=== PATIENT | male | born 1990 | race Caucasian/White ===

== ENCOUNTER 2016-05-28 21:58 | Inpatient (IN) | payer MEDICAID ==
[~2016-05-28] VITALS: Ht 170.2 cm; Wt 106.5 kg
[~2016-05-28 21:58] MED LIST: OLAN10TA3 PO
[2016-05-28 23:24] VITALS: BP 135/91
[2016-05-28] MEDS ORDERED: HALOPERIDOL 5 MG TABLET PO PRN (23:30)
[2016-05-28] MEDS ORDERED: ZOLPIDEM TARTRATE 10 MG TABLET PO PRN (23:30)
[2016-05-28] MEDS ORDERED: LORazepam 2 MG TABLET PO PRN (23:30)
[2016-05-29] MEDS ORDERED: ACETAMINOPHEN 325 MG TABLET PO PRN (00:15)
[2016-05-29] MEDS ORDERED: LOPERAMIDE HCL 2 MG CAPSULE PO PRN (00:15)
[2016-05-29 00:36] VITALS: BP 125/75
[2016-05-29] MEDS ORDERED: PNEUMOCOCCAL VACCINE POLYVALENT 0.5 ML VIAL [PPSV23] IM ONE (01:30)
[2016-05-29 07:58] LABS: BASOPHILS % (AUTO) 0.5 % (0.0-2.0); HEMOGLOBIN 13.1 g/dL (13.5-17.5); LYMPHOCYTES # (AUTO) 2.9 K/uL (1.0-4.8); LYMPHOCYTES % (AUTO) 32.7 % (22.0-44.0); MEAN CORPUSCULAR HEMOGLOBIN 27.2 pg (26.0-34.0); MEAN CORPUSCULAR HGB CONC 32.6 G/dL (31.0-37.0); MEAN CORPUSCULAR VOLUME 83 fL (80-100); MONOCYTES % (AUTO) 11.2 % (2.0-9.0); NEUTROPHILS # (AUTO) 4.9 K/uL (1.8-7.7); NEUTROPHILS % (AUTO) 54.6 % (40.0-70.0); PLATELET COUNT (AUTO) 209 K/uL (150-450); RED CELL DISTRIBUTION WIDTH 14.3 % (11.5-14.5); WHITE BLOOD COUNT (AUTO) 8.9 K/uL (4.5-11.0)
[2016-05-29 08:16] LABS: ALANINE AMINOTRANSFERASE 106 U/L (12-78); ALBUMIN 3.3 g/dL (3.4-5.0); ANION GAP 9 mmol/L (8-16); ASPARTATE AMINOTRANSFERASE 36 U/L (15-37); BILIRUBIN,TOTAL 0.5 mg/dL (0.1-1.0); CALCIUM, TOTAL 8.5 mg/dL (8.8-10.5); CARBON DIOXIDE 27 mmol/L (22-29); CHLORIDE 103 mmol/L (98-107); CREATININE 0.88 mg/dL (0.60-1.30); GLOMERULAR FILTR. RATE CALC > 60 mL/min (>60); SODIUM SERUM 139 mmol/L (136-145); TOTAL PROTEIN, SERUM 6.5 g/dL (6.4-8.2); UREA NITROGEN, BLOOD 11 mg/dL (7-18)
[2016-05-29 08:31] VITALS: BP 107/65
[2016-05-29 16:04] VITALS: BP 138/87
[2016-05-29] MEDS ORDERED: OLANZapine 10 MG TABLET PO SCH (21:00)
[2016-05-30 06:30] VITALS: BP 114/82
[2016-05-30 08:55] VITALS: BP 114/73
[2016-05-30] MEDS ORDERED: FLUoxetine HCL 20 MG CAPSULE PO SCH (09:00)
[2016-05-30 16:00] VITALS: BP 118/68
[2016-05-30] MEDS ORDERED: OLANZapine 7.5 MG TABLET PO SCH (21:00)
[2016-05-31 04:14] VITALS: BP 115/70
[2016-05-31 08:41] VITALS: BP 118/61
[2016-05-31] MEDS: FLUoxetine HCL 20 MG CAPSULE PO SCH (08:56)
[2016-05-31 16:00] VITALS: BP 109/67
[2016-05-31] MEDS: OLANZapine 10 MG TABLET PO SCH (20:05)
[2016-06-01 06:16] VITALS: BP 108/62
[2016-06-01 08:04] VITALS: BP 138/80
[2016-06-01] MEDS: FLUoxetine HCL 20 MG CAPSULE PO SCH (08:41)
[2016-06-01 16:06] VITALS: BP 131/79
[2016-06-01] MEDS: OLANZapine 10 MG TABLET PO SCH (20:27)
[2016-06-02 01:05] VITALS: BP 113/68
[2016-06-02 08:21] VITALS: BP 119/83
[2016-06-02] MEDS ORDERED: FLUoxetine HCL 20 MG CAPSULE PO SCH (09:00)
[2016-06-02] MEDS ORDERED: FLUO-191 PO (12:30)
== END 2016-06-02 13:15 | disposition home or self-care (01) | DRG 750 ==
LOC: B2S 23:35 → EDSTATUS 23:50
PROVIDERS: ADMIT Psychiatry & Neurology Psychiatry; ATTEND Psychiatry & Neurology Psychiatry
DX: F25.0 Schizoaffective disorder, bipolar type (principal); J44.9 Chronic obstructive pulmonary disease, unspecified; R45.851 Suicidal ideations; L02.413 Cutaneous abscess of right upper limb; F14.90 Cocaine use, unspecified, uncomplicated; F15.90 Other stimulant use, unspecified, uncomplicated; Z62.819 Personal history of unspecified abuse in childhood; F12.90 Cannabis use, unspecified, uncomplicated; Z63.8 Other specified problems related to primary support group; Z59.0 Homelessness; Z91.19 Patient's noncompliance with other medical treatment and regimen; Z98.890 Other specified postprocedural states; Z71.51 Drug abuse counseling and surveillance of drug abuser

== ENCOUNTER 2018-04-19 07:32 | Inpatient (IN) | payer MEDICAID, OTHER ==
[~2018-04-19] VITALS: Ht 167.6 cm; Wt 113.9 kg
[~2018-04-19 07:32] MED LIST changes: +FLUO-191 PO
[2018-04-19 08:11] LABS: AMPHET/METH SCREEN,URINE NEGATIVE (NEGATIVE); BARBITURATE SCREEN, URINE NEGATIVE (NEGATIVE); BENZODIAZEPINES SCREEN,URINE NEGATIVE (NEGATIVE); CANNABINOID SCREEN,URINE NEGATIVE (NEGATIVE); COCAINE SCREEN,URINE NEGATIVE (NEGATIVE); METHADONE SCREEN, URINE NEGATIVE (NEGATIVE); OPIATE SCREEN,URINE NEGATIVE (NEGATIVE); PHENCYCLIDINE SCREEN,URINE NEGATIVE (NEGATIVE)
[2018-04-19 08:15] LABS: BASOPHILS % (AUTO) 0.7 % (0.0-2.0); EOSINOPHILS % (AUTO) 0.3 % (1.0-6.0); HEMATOCRIT 41.4 % (41-53); HEMOGLOBIN 13.7 g/dL (13.5-17.5); LYMPHOCYTES # (AUTO) 1.4 K/uL (1.0-4.8); LYMPHOCYTES % (AUTO) 17.9 % (22.0-44.0); MEAN CORPUSCULAR HEMOGLOBIN 26.3 pg (26.0-34.0); MEAN CORPUSCULAR HGB CONC 33.1 G/dL (31.0-37.0); MEAN CORPUSCULAR VOLUME 79 fL (80-100); MONOCYTES # (AUTO) 0.8 K/uL (0.1-1.0); NEUTROPHILS # (AUTO) 5.6 K/uL (1.8-7.7); NEUTROPHILS % (AUTO) 71.1 % (40.0-70.0); PLATELET COUNT (AUTO) 282 K/uL (150-450); RED BLOOD CELL COUNT(AUTO) 5.21 MIL/uL (4.50-5.90); RED CELL DISTRIBUTION WIDTH 14.7 % (11.5-14.5)
[2018-04-19 08:23] LABS: ANION GAP 13 mmol/L (8-16); CALCIUM, TOTAL 9.5 mg/dL (8.8-10.5); CARBON DIOXIDE 23 mmol/L (22-29); CHLORIDE 101 mmol/L (98-107); CREATININE 0.73 mg/dL (0.60-1.30); GLOMERULAR FILTR. RATE CALC > 60 mL/min (>60); GLUCOSE,RANDOM 109 mg/dL (70-110); POTASSIUM 3.9 mmol/L (3.5-5.1); SODIUM SERUM 137 mmol/L (136-145); UREA NITROGEN, BLOOD 10 mg/dL (7-18)
[2018-04-19 08:29] LABS: ALANINE AMINOTRANSFERASE 72 U/L (12-78); ALBUMIN 3.6 g/dL (3.4-5.0); ALKALINE PHOSPHATASE 129 U/L (46-116); ASPARTATE AMINOTRANSFERASE 29 U/L (15-37); BILIRUBIN,TOTAL 0.4 mg/dL (0.1-1.0); TOTAL PROTEIN, SERUM 8.1 g/dL (6.4-8.2)
[2018-04-19] MEDS ORDERED: ZOLPIDEM TARTRATE 10 MG TABLET PO PRN (09:30)
[2018-04-19] MEDS ORDERED: HALOPERIDOL 5 MG TABLET PO PRN (09:30)
[2018-04-19] MEDS ORDERED: LORazepam 2 MG TABLET PO PRN (09:30)
[2018-04-19] MEDS ORDERED: PNEUMOCOCCAL VACCINE POLYVALENT 0.5 ML VIAL [PPSV23] IM ONE (13:45)
[2018-04-19 13:53] VITALS: BP 122/90
[2018-04-19] MEDS ORDERED: DOCUSATE SODIUM 100 MG CAPSULE PO PRN (15:00)
[2018-04-19] MEDS ORDERED: IBUPROFEN 400 MG TABLET PO PRN (15:00)
[2018-04-19] MEDS ORDERED: PETROLATUM,WHITE 71 GM JELLY TP PRN (15:00)
[2018-04-19] MEDS ORDERED: ALBUTEROL SULFATE HFA 90 MCG/PUFF 8 GM INHALER IH PRN (15:00)
[2018-04-19] MEDS ORDERED: ONDANSETRON HCL 4 MG TABLET PO PRN (15:00)
[2018-04-19] MEDS ORDERED: NICOTINE 14 MG/24 HOUR PATCH TD PRN (15:00)
[2018-04-19] MEDS ORDERED: LOPERAMIDE HCL 2 MG CAPSULE PO PRN (15:00)
[2018-04-19] MEDS ORDERED: MAG HYDROX/AL HYDROX/SIMETH ES 30 ML SUSPENSION UDCUP PO PRN (15:00)
[2018-04-19] MEDS ORDERED: ACETAMINOPHEN 325 MG TABLET PO PRN (15:00)
[2018-04-19] MEDS ORDERED: CloNIDine HCL 0.1 MG TABLET PO PRN (15:00)
[2018-04-19] MEDS ORDERED: MAGNESIUM HYDROXIDE SUSPENSION 30 ML UDCUP PO PRN (15:00)
[2018-04-19] MEDS ORDERED: GuaiFENesin/D-METHORPHAN [SUGAR-FREE] 200-20MG/10 ML SYRUP UDCUP PO PRN (15:00)
[2018-04-19 16:13] VITALS: BP 121/75
[2018-04-19] MEDS: OLANZapine 10 MG TABLET PO SCH (21:00)
[2018-04-20 00:42] VITALS: BP 118/70
[2018-04-20 08:28] VITALS: BP 153/72
[2018-04-20 08:47] LABS: BASOPHILS % (AUTO) 0.4 % (0.0-2.0); EOSINOPHILS % (AUTO) 1.1 % (1.0-6.0); HEMATOCRIT 41.5 % (41-53); HEMOGLOBIN 13.5 g/dL (13.5-17.5); LYMPHOCYTES # (AUTO) 2.4 K/uL (1.0-4.8); LYMPHOCYTES % (AUTO) 30.4 % (22.0-44.0); MEAN CORPUSCULAR HEMOGLOBIN 26.3 pg (26.0-34.0); MEAN CORPUSCULAR HGB CONC 32.5 G/dL (31.0-37.0); MEAN CORPUSCULAR VOLUME 81 fL (80-100); MONOCYTES # (AUTO) 0.9 K/uL (0.1-1.0); MONOCYTES % (AUTO) 11.1 % (2.0-9.0); NEUTROPHILS # (AUTO) 4.6 K/uL (1.8-7.7); PLATELET COUNT (AUTO) 278 K/uL (150-450); RED BLOOD CELL COUNT(AUTO) 5.14 MIL/uL (4.50-5.90); RED CELL DISTRIBUTION WIDTH 14.7 % (11.5-14.5)
[2018-04-20] MEDS: FLUoxetine HCL 20 MG CAPSULE PO SCH ×2 (09:00→10:05)
[2018-04-20 09:42] LABS: ALANINE AMINOTRANSFERASE 71 U/L (12-78); ALBUMIN 3.3 g/dL (3.4-5.0); ALKALINE PHOSPHATASE 120 U/L (46-116); ANION GAP 7 mmol/L (8-16); ASPARTATE AMINOTRANSFERASE 26 U/L (15-37); BILIRUBIN,TOTAL 0.4 mg/dL (0.1-1.0); CALCIUM, TOTAL 9.3 mg/dL (8.8-10.5); CARBON DIOXIDE 27 mmol/L (22-29); CHLORIDE 104 mmol/L (98-107); CHOL/HDL RATIO 3.1 (4.2-7.3); CHOLESTEROL 141 mg/dL (131-200); CREATININE 0.75 mg/dL (0.60-1.30); GLOMERULAR FILTR. RATE CALC > 60 mL/min (>60); GLUCOSE,RANDOM 97 mg/dL (70-110); HDL CHOLESTEROL 45 mg/dL (40-60); HEMOGLOBIN A1C 5.5 % (4.5-6.2); LDL CHOL (CALC.) 84 mg/dL (0-130); POTASSIUM 4.2 mmol/L (3.5-5.1); SODIUM SERUM 138 mmol/L (136-145); THYROID STIMULATING HORMONE 0.04 uIU/mL (0.36-3.74); TOTAL PROTEIN, SERUM 7.7 g/dL (6.4-8.2); TRIGLYCERIDES 59 mg/dL (15-150); UREA NITROGEN, BLOOD 15 mg/dL (7-18)
[2018-04-20 10:20] VITALS: BP 118/67
[2018-04-20 16:16] VITALS: BP 123/83
[2018-04-20] MEDS: OLANZapine 10 MG TABLET PO SCH (20:32)
[2018-04-21 05:26] VITALS: BP 135/82
[2018-04-21] MEDS: FLUoxetine HCL 20 MG CAPSULE PO SCH ×2 (08:09→09:00)
[2018-04-21 08:33] VITALS: BP 125/90
[2018-04-21 16:07] VITALS: BP 117/73
[2018-04-21] MEDS: OLANZapine 10 MG TABLET PO SCH (20:51)
[2018-04-22 01:26] VITALS: BP 140/80
[2018-04-22 08:25] VITALS: BP 120/68
[2018-04-22] MEDS: FLUoxetine HCL 20 MG CAPSULE PO SCH (08:55)
[2018-04-22 16:26] VITALS: BP 126/70
[2018-04-22] MEDS: OLANZapine 10 MG TABLET PO SCH (20:34)
[2018-04-23 07:24] VITALS: BP 120/81
[2018-04-23 08:43] VITALS: BP 121/63
[2018-04-23] MEDS: FLUoxetine HCL 20 MG CAPSULE PO SCH ×2 (09:00→11:15)
[2018-04-23 16:41] VITALS: BP 119/60
[2018-04-23] MEDS: OLANZapine 10 MG TABLET PO SCH (21:00)
[2018-04-24 00:05] VITALS: BP 117/78
[2018-04-24 08:51] VITALS: BP 100/60
[2018-04-24] MEDS: FLUoxetine HCL 20 MG CAPSULE PO SCH (09:00)
[2018-04-24 16:13] VITALS: BP 119/79
[2018-04-24] MEDS: OLANZapine 10 MG TABLET PO SCH (21:00)
[2018-04-25 01:55] VITALS: BP 106/71
[2018-04-25] MEDS: FLUoxetine HCL 20 MG CAPSULE PO SCH ×2 (09:00→09:22)
[2018-04-25 09:22] VITALS: BP 115/73
[2018-04-25 17:05] VITALS: BP 101/78
[2018-04-25] MEDS: OLANZapine 10 MG TABLET PO SCH (20:12)
[2018-04-26 00:20] VITALS: BP 122/68
[2018-04-26 08:43] VITALS: BP 114/76
[2018-04-26] MEDS: FLUoxetine HCL 20 MG CAPSULE PO SCH (09:00)
[2018-04-26 16:17] VITALS: BP 120/72
== END 2018-04-26 17:35 | disposition home or self-care (01) | DRG 750 ==
LOC: EMS 07:33 → B2S 10:34 → EMS 11:22 → B2S 04-23 19:30
PROVIDERS: ADMIT Psychiatry & Neurology Child & Adolescent Psychiatry; ATTEND Psychiatry & Neurology Child & Adolescent Psychiatry
DX: F25.0 Schizoaffective disorder, bipolar type (principal); E05.90 Thyrotoxicosis, unspecified without thyrotoxic crisis or storm; F41.9 Anxiety disorder, unspecified; G44.209 Tension-type headache, unspecified, not intractable; F99 Mental disorder, not otherwise specified; J44.9 Chronic obstructive pulmonary disease, unspecified; Z87.891 Personal history of nicotine dependence; Z28.21 Immunization not carried out because of patient refusal
CPT/HCPCS: 83036; 84439; 84443; 90686; 90732; G0480

== ENCOUNTER 2018-05-07 05:13 | Inpatient (IN) | payer MEDICAID, OTHER ==
[~2018-05-07] VITALS: Ht 160 cm; Wt 113.0 kg
[2018-05-07 05:53] LABS: ANION GAP 13 mmol/L (8-16); CALCIUM, TOTAL 9.3 mg/dL (8.8-10.5); CARBON DIOXIDE 23 mmol/L (22-29); CHLORIDE 100 mmol/L (98-107); GLOMERULAR FILTR. RATE CALC > 60 mL/min (>60); GLUCOSE,RANDOM 111 mg/dL (70-110); POTASSIUM 3.6 mmol/L (3.5-5.1); SODIUM SERUM 136 mmol/L (136-145); UREA NITROGEN, BLOOD 10 mg/dL (7-18)
[2018-05-07 05:54] LABS: BASOPHILS % (AUTO) 0.3 % (0.0-2.0); EOSINOPHILS % (AUTO) 0.6 % (1.0-6.0); HEMATOCRIT 44.1 % (41-53); HEMOGLOBIN 14.7 g/dL (13.5-17.5); LYMPHOCYTES # (AUTO) 3.1 K/uL (1.0-4.8); LYMPHOCYTES % (AUTO) 29.2 % (22.0-44.0); MEAN CORPUSCULAR HEMOGLOBIN 26.3 pg (26.0-34.0); MEAN CORPUSCULAR HGB CONC 33.3 G/dL (31.0-37.0); MEAN CORPUSCULAR VOLUME 79 fL (80-100); MONOCYTES # (AUTO) 0.7 K/uL (0.1-1.0); MONOCYTES % (AUTO) 6.4 % (2.0-9.0); NEUTROPHILS # (AUTO) 6.8 K/uL (1.8-7.7); NEUTROPHILS % (AUTO) 63.5 % (40.0-70.0); PLATELET COUNT (AUTO) 297 K/uL (150-450); RED BLOOD CELL COUNT(AUTO) 5.59 MIL/uL (4.50-5.90); RED CELL DISTRIBUTION WIDTH 14.9 % (11.5-14.5)
[2018-05-07 06:00] LABS: ALANINE AMINOTRANSFERASE 49 U/L (12-78); ALKALINE PHOSPHATASE 127 U/L (46-116); ASPARTATE AMINOTRANSFERASE 18 U/L (15-37); BILIRUBIN,TOTAL 0.4 mg/dL (0.1-1.0); TOTAL PROTEIN, SERUM 8.4 g/dL (6.4-8.2)
[2018-05-07 06:02] LABS: AMPHET/METH SCREEN,URINE NEGATIVE (NEGATIVE); BARBITURATE SCREEN, URINE NEGATIVE (NEGATIVE); BENZODIAZEPINES SCREEN,URINE NEGATIVE (NEGATIVE); CANNABINOID SCREEN,URINE NEGATIVE (NEGATIVE); COCAINE SCREEN,URINE NEGATIVE (NEGATIVE); METHADONE SCREEN, URINE NEGATIVE (NEGATIVE); OPIATE SCREEN,URINE NEGATIVE (NEGATIVE)
[2018-05-07 06:08] LABS: PHENCYCLIDINE SCREEN,URINE NEGATIVE (NEGATIVE)
[2018-05-07] MEDS ORDERED: LORazepam 2 MG TABLET PO PRN (10:30)
[2018-05-07] MEDS ORDERED: ZOLPIDEM TARTRATE 10 MG TABLET PO PRN (10:30)
[2018-05-07] MEDS ORDERED: HALOPERIDOL 5 MG TABLET PO PRN (10:30)
[2018-05-07 12:57] VITALS: BP 131/81
[2018-05-07 12:58] VITALS: BP 131/81
[2018-05-07] MEDS ORDERED: IBUPROFEN 400 MG TABLET PO PRN (13:00)
[2018-05-07] MEDS ORDERED: ALBUTEROL SULFATE HFA 90 MCG/PUFF 8 GM INHALER IH PRN (13:00)
[2018-05-07] MEDS ORDERED: CloNIDine HCL 0.1 MG TABLET PO PRN (13:00)
[2018-05-07] MEDS ORDERED: ACETAMINOPHEN 325 MG TABLET PO PRN (13:00)
[2018-05-07] MEDS ORDERED: LOPERAMIDE HCL 2 MG CAPSULE PO PRN (13:00)
[2018-05-07] MEDS ORDERED: MAG HYDROX/AL HYDROX/SIMETH ES 30 ML SUSPENSION UDCUP PO PRN (13:00)
[2018-05-07] MEDS ORDERED: GuaiFENesin/D-METHORPHAN [SUGAR-FREE] 200-20MG/10 ML SYRUP UDCUP PO PRN (13:00)
[2018-05-07] MEDS ORDERED: NICOTINE 14 MG/24 HOUR PATCH TD PRN (13:00)
[2018-05-07] MEDS ORDERED: PETROLATUM,WHITE 28 GM JELLY TP PRN (13:00)
[2018-05-07] MEDS ORDERED: DOCUSATE SODIUM 100 MG CAPSULE PO PRN (13:00)
[2018-05-07] MEDS ORDERED: ONDANSETRON HCL 4 MG TABLET PO PRN (13:00)
[2018-05-07] MEDS ORDERED: MAGNESIUM HYDROXIDE SUSPENSION 30 ML UDCUP PO PRN (13:00)
[2018-05-07 13:12] VITALS: BP 131/81
[2018-05-07] MEDS ORDERED: PNEUMOCOCCAL VACCINE POLYVALENT 0.5 ML VIAL [PPSV23] IM ONE (14:00)
[2018-05-07 16:04] VITALS: BP 118/67
[2018-05-08 05:02] VITALS: BP 122/78
[2018-05-08 08:24] VITALS: BP 117/62
[2018-05-08 08:43] LABS: BASOPHILS % (AUTO) 0.3 % (0.0-2.0); EOSINOPHILS % (AUTO) 0.9 % (1.0-6.0); HEMATOCRIT 42.5 % (41-53); LYMPHOCYTES # (AUTO) 3.3 K/uL (1.0-4.8); LYMPHOCYTES % (AUTO) 35.9 % (22.0-44.0); MEAN CORPUSCULAR HEMOGLOBIN 26.3 pg (26.0-34.0); MEAN CORPUSCULAR VOLUME 80 fL (80-100); MONOCYTES # (AUTO) 0.7 K/uL (0.1-1.0); MONOCYTES % (AUTO) 7.7 % (2.0-9.0); NEUTROPHILS % (AUTO) 55.2 % (40.0-70.0); PLATELET COUNT (AUTO) 259 K/uL (150-450); RED BLOOD CELL COUNT(AUTO) 5.32 MIL/uL (4.50-5.90); RED CELL DISTRIBUTION WIDTH 14.7 % (11.5-14.5)
[2018-05-08 09:01] LABS: HEMOGLOBIN A1C 5.9 % (4.5-6.2)
[2018-05-08 09:20] LABS: ALANINE AMINOTRANSFERASE 49 U/L (12-78); ALBUMIN 3.6 g/dL (3.4-5.0); ALKALINE PHOSPHATASE 117 U/L (46-116); ANION GAP 10 mmol/L (8-16); ASPARTATE AMINOTRANSFERASE 22 U/L (15-37); BILIRUBIN,TOTAL 0.6 mg/dL (0.1-1.0); CALCIUM, TOTAL 8.9 mg/dL (8.8-10.5); CARBON DIOXIDE 26 mmol/L (22-29); CHLORIDE 103 mmol/L (98-107); CHOL/HDL RATIO 4.8 (4.2-7.3); CHOLESTEROL 168 mg/dL (131-200); CREATININE 0.79 mg/dL (0.60-1.30); GLOMERULAR FILTR. RATE CALC > 60 mL/min (>60); GLUCOSE,RANDOM 83 mg/dL (70-110); HDL CHOLESTEROL 35 mg/dL (40-60); LDL CHOL (CALC.) 104 mg/dL (0-130); POTASSIUM 4.4 mmol/L (3.5-5.1); SODIUM SERUM 139 mmol/L (136-145); THYROID STIMULATING HORMONE 0.97 uIU/mL (0.36-3.74); TOTAL PROTEIN, SERUM 7.2 g/dL (6.4-8.2); TRIGLYCERIDES 146 mg/dL (15-150); UREA NITROGEN, BLOOD 14 mg/dL (7-18)
[2018-05-08 16:00] VITALS: BP 129/86
[2018-05-08] MEDS: OLANZapine 10 MG TABLET PO SCH (20:34)
[2018-05-09 01:20] VITALS: BP 124/79
[2018-05-09 08:09] VITALS: BP 118/67
[2018-05-09] MEDS: FLUoxetine HCL 20 MG CAPSULE PO SCH (08:58)
[2018-05-09] MEDS: OLANZapine 10 MG TABLET PO SCH ×2 (08:58→21:00)
[2018-05-09 16:22] VITALS: BP 127/65
[2018-05-10 06:16] VITALS: BP 122/82
[2018-05-10 08:12] VITALS: BP 117/72
[2018-05-10] MEDS: FLUoxetine HCL 20 MG CAPSULE PO SCH ×2 (08:21→09:00)
[2018-05-10] MEDS: OLANZapine 10 MG TABLET PO SCH ×3 (08:21→21:00)
[2018-05-10 16:15] VITALS: BP 106/63
[2018-05-11 05:57] VITALS: BP 112/72
[2018-05-11] MEDS: OLANZapine 10 MG TABLET PO SCH ×3 (08:35→21:00)
[2018-05-11] MEDS: FLUoxetine HCL 20 MG CAPSULE PO SCH ×2 (08:35→08:40)
[2018-05-11 09:26] VITALS: BP 122/77
[2018-05-11 16:00] VITALS: BP 123/68
[2018-05-12 03:29] VITALS: BP 121/69
[2018-05-12] MEDS: FLUoxetine HCL 20 MG CAPSULE PO SCH (08:16)
[2018-05-12] MEDS: OLANZapine 10 MG TABLET PO SCH ×2 (08:16→21:00)
[2018-05-12 09:38] VITALS: BP 117/71
[2018-05-12 16:41] VITALS: BP 117/81
[2018-05-13 01:46] VITALS: BP 143/81
[2018-05-13 08:27] VITALS: BP 110/60
[2018-05-13] MEDS: OLANZapine 10 MG TABLET PO SCH ×2 (09:00→20:36)
[2018-05-13] MEDS: FLUoxetine HCL 20 MG CAPSULE PO SCH (09:00)
[2018-05-13 16:00] VITALS: BP 119/85
[2018-05-14 00:58] VITALS: BP 114/76
[2018-05-14 07:56] VITALS: BP 127/75
[2018-05-14] MEDS: FLUoxetine HCL 20 MG CAPSULE PO SCH (08:26)
[2018-05-14] MEDS: OLANZapine 10 MG TABLET PO SCH ×2 (08:26→21:00)
[2018-05-14 08:59] VITALS: BP 127/75
[2018-05-14 16:00] VITALS: BP 126/65
[2018-05-15 01:13] VITALS: BP 122/78
[2018-05-15 08:20] VITALS: BP 138/70
[2018-05-15] MEDS: OLANZapine 10 MG TABLET PO SCH ×2 (09:00→21:00)
[2018-05-15] MEDS: FLUoxetine HCL 20 MG CAPSULE PO SCH (09:00)
[2018-05-15 17:08] VITALS: BP 147/87
[2018-05-16 00:11] VITALS: BP 140/74
[2018-05-16 08:07] VITALS: BP 114/67
[2018-05-16] MEDS: OLANZapine 10 MG TABLET PO SCH ×2 (08:26→20:51)
[2018-05-16] MEDS: FLUoxetine HCL 20 MG CAPSULE PO SCH (08:26)
[2018-05-16 16:32] VITALS: BP 115/83
[2018-05-17 01:37] VITALS: BP 117/84
[2018-05-17 08:20] VITALS: BP 110/61
[2018-05-17] MEDS: OLANZapine 10 MG TABLET PO SCH ×2 (09:00→20:34)
[2018-05-17] MEDS: FLUoxetine HCL 20 MG CAPSULE PO SCH (09:00)
[2018-05-17 16:00] VITALS: BP 123/70
[2018-05-18 00:08] VITALS: BP 142/93
[2018-05-18 08:19] VITALS: BP 118/73
[2018-05-18] MEDS: FLUoxetine HCL 20 MG CAPSULE PO SCH (09:00)
[2018-05-18] MEDS: OLANZapine 10 MG TABLET PO SCH (09:00)
[2018-05-18] MEDS ORDERED: OLAN10TA3 PO (15:50)
[2018-05-18 16:22] VITALS: BP 111/68
== END 2018-05-18 21:14 | disposition home or self-care (01) | DRG 750 ==
LOC: EMS 05:14 → B3A 11:12
PROVIDERS: ADMIT Psychiatry & Neurology Child & Adolescent Psychiatry; ATTEND Psychiatry & Neurology Child & Adolescent Psychiatry
DX: F25.0 Schizoaffective disorder, bipolar type (principal); Z91.19 Patient's noncompliance with other medical treatment and regimen; E03.9 Hypothyroidism, unspecified; F17.200 Nicotine dependence, unspecified, uncomplicated; J44.9 Chronic obstructive pulmonary disease, unspecified; K59.00 Constipation, unspecified; F41.9 Anxiety disorder, unspecified
CPT/HCPCS: 83036; 84443; 87081; G0480

== ENCOUNTER 2018-08-26 23:47 | Emergency (ER) | payer SELFPAY ==
[~2018-08-26] VITALS: Ht 167.6 cm; Wt 109.1 kg
[2018-08-27 01:00] LABS: BASOPHILS % (AUTO) 0.6 % (0.0-2.0); EOSINOPHILS % (AUTO) 0.5 % (1.0-6.0); HEMATOCRIT 42.7 % (41-53); HEMOGLOBIN 13.9 g/dL (13.5-17.5); LYMPHOCYTES # (AUTO) 2.3 K/uL (1.0-4.8); LYMPHOCYTES % (AUTO) 23.8 % (22.0-44.0); MEAN CORPUSCULAR HEMOGLOBIN 26.9 pg (26.0-34.0); MEAN CORPUSCULAR HGB CONC 32.5 G/dL (31.0-37.0); MEAN CORPUSCULAR VOLUME 83 fL (80-100); MONOCYTES # (AUTO) 0.6 K/uL (0.1-1.0); MONOCYTES % (AUTO) 6.4 % (2.0-9.0); NEUTROPHILS # (AUTO) 6.6 K/uL (1.8-7.7); NEUTROPHILS % (AUTO) 68.7 % (40.0-70.0); PLATELET COUNT (AUTO) 239 K/uL (150-450); RED BLOOD CELL COUNT(AUTO) 5.17 MIL/uL (4.50-5.90); RED CELL DISTRIBUTION WIDTH 15.7 % (11.5-14.5)
[2018-08-27 01:07] LABS: ANION GAP 8 mmol/L (8-16); CALCIUM, TOTAL 9.1 mg/dL (8.8-10.5); CARBON DIOXIDE 26 mmol/L (22-29); CHLORIDE 102 mmol/L (98-107); CREATININE 0.94 mg/dL (0.60-1.30); GLOMERULAR FILTR. RATE CALC > 60 mL/min (>60); GLUCOSE,RANDOM 119 mg/dL (70-110); POTASSIUM 3.7 mmol/L (3.5-5.1); SODIUM SERUM 136 mmol/L (136-145); UREA NITROGEN, BLOOD 7 mg/dL (7-18)
[2018-08-27 01:12] LABS: ALANINE AMINOTRANSFERASE 101 U/L (12-78); ALBUMIN 3.4 g/dL (3.4-5.0); ALKALINE PHOSPHATASE 142 U/L (46-116); ASPARTATE AMINOTRANSFERASE 46 U/L (15-37); BILIRUBIN,TOTAL 0.4 mg/dL (0.1-1.0); TOTAL PROTEIN, SERUM 7.7 g/dL (6.4-8.2)
[2018-08-27] MEDS ORDERED: HALOPERIDOL LACTATE 5 MG/ML VIAL IM ONE (01:15)
[2018-08-27] MEDS ORDERED: LORazepam 2 MG/ML VIAL IM ONE (01:15)
[2018-08-27 05:22] LABS: AMPHET/METH SCREEN,URINE NEGATIVE (NEGATIVE); BARBITURATE SCREEN, URINE NEGATIVE (NEGATIVE); BENZODIAZEPINES SCREEN,URINE NEGATIVE (NEGATIVE); CANNABINOID SCREEN,URINE NEGATIVE (NEGATIVE); COCAINE SCREEN,URINE NEGATIVE (NEGATIVE); METHADONE SCREEN, URINE NEGATIVE (NEGATIVE); OPIATE SCREEN,URINE NEGATIVE (NEGATIVE)
[2018-08-27 05:23] LABS: PHENCYCLIDINE SCREEN,URINE NEGATIVE (NEGATIVE)
[2018-08-27 06:03] VITALS: BP 132/86
== END 2018-08-27 06:05 | disposition home or self-care (01) ==
LOC: EMS 23:47
DX: F20.0 Paranoid schizophrenia (principal); Z87.891 Personal history of nicotine dependence
CPT/HCPCS: 36415; 80053; 80307; 85025; 99285; G0480

== ENCOUNTER 2022-02-21 11:17 | Inpatient (IN) | payer MEDICAID, OTHER ==
[~2022-02-21] VITALS: Ht 170.2 cm; Wt 124.3 kg
[~2022-02-21 11:17] MED LIST changes: +FLUO-177 PO; -FLUO-191 PO; -OLAN10TA3 PO; +OLAN10TA74 PO
[2022-02-21] MEDS ORDERED: ZOLPIDEM TARTRATE 10 MG TABLET PO PRN (13:00)
[2022-02-21] MEDS ORDERED: ACETAMINOPHEN 325 MG TABLET PO PRN (13:00)
[2022-02-21] MEDS ORDERED: PROMETHAZINE HCL 25 MG TABLET PO PRN (13:00)
[2022-02-21] MEDS ORDERED: TUBERCULIN, PURIFIED PROTEIN DERIVATIVE 5 TU/0.1 ML SYRINGE ID ONE (13:00)
[2022-02-21] MEDS ORDERED: HydrOXYzine PAMOATE 50 MG CAPSULE PO PRN (13:00)
[2022-02-21] MEDS ORDERED: GuaiFENesin/D-METHORPHAN [SUGAR-FREE] 200-20MG/10 ML SYRUP UDCUP PO PRN (13:00)
[2022-02-21] MEDS ORDERED: LORazepam 2 MG TABLET PO PRN (13:00)
[2022-02-21] MEDS ORDERED: MAG HYDROX/AL HYDROX/SIMETH ES 30 ML SUSPENSION UDCUP PO PRN (13:00)
[2022-02-21] MEDS ORDERED: LOPERAMIDE HCL 2 MG CAPSULE PO PRN (13:00)
[2022-02-21] MEDS ORDERED: MAGNESIUM HYDROXIDE SUSPENSION 30 ML UDCUP PO PRN (13:00)
[2022-02-21] MEDS ORDERED: OLANZapine 5 MG RAPDIS TABLET PO PRN (13:00)
[2022-02-21 13:26] LABS: BASOPHILS % (AUTO) 0.4 % (0.0-2.0); EOSINOPHILS % (AUTO) 0.3 % (1.0-6.0); HEMATOCRIT 40.9 % (41-53); HEMOGLOBIN 13.1 g/dL (13.5-17.5); LYMPHOCYTES # (AUTO) 1.6 K/uL (1.0-4.8); LYMPHOCYTES % (AUTO) 11.2 % (22.0-44.0); MEAN CORPUSCULAR HEMOGLOBIN 26.1 pg (26.0-34.0); MEAN CORPUSCULAR VOLUME 82 fL (80-100); MONOCYTES # (AUTO) 0.7 K/uL (0.1-1.0); MONOCYTES % (AUTO) 4.9 % (2.0-9.0); NEUTROPHILS # (AUTO) 12.1 K/uL (1.8-7.7); NEUTROPHILS % (AUTO) 83.2 % (40.0-70.0); PLATELET COUNT (AUTO) 300 K/uL (150-450); RED CELL DISTRIBUTION WIDTH 15.6 % (11.5-14.5)
[2022-02-21 13:36] LABS: ANION GAP 8 mmol/L (8-16); CALCIUM, TOTAL 9.2 mg/dL (8.8-10.5); CARBON DIOXIDE 25 mmol/L (22-29); CHLORIDE 100 mmol/L (98-107); CREATININE 0.85 mg/dL (0.60-1.30); GLUCOSE,RANDOM 103 mg/dL (70-110); POTASSIUM 4.1 mmol/L (3.5-5.1); SODIUM SERUM 133 mmol/L (136-145); UREA NITROGEN, BLOOD 8 mg/dL (7-18)
[2022-02-21 13:39] LABS: GLOMERULAR FILTR. RATE CALC > 60 mL/min (>60)
[2022-02-21 13:42] LABS: ALANINE AMINOTRANSFERASE 52 U/L (12-78); ALBUMIN 3.5 g/dL (3.4-5.0); ALKALINE PHOSPHATASE 129 U/L (46-116); ASPARTATE AMINOTRANSFERASE 19 U/L (15-37); BILIRUBIN,TOTAL 0.4 mg/dL (0.1-1.0); TOTAL PROTEIN, SERUM 8.6 g/dL (6.4-8.2)
[2022-02-21] MEDS ORDERED: VASOPRESSIN 40 UNITS in DEXTROSE 5%-WATER 98 ML IV PRN (14:15)
[2022-02-21 20:35] LABS: COVID AG,FIA SOURCE NASOPHARYNGEAL
[2022-02-21] MEDS: THIAMINE 100 MG TABLET PO SCH (20:41)
[2022-02-21] MEDS: DIVALPROEX SODIUM 500 MG ER TABLET PO SCH (20:41)
[2022-02-21 20:42] LABS: AMPHET/METH SCREEN,URINE NEGATIVE (NEGATIVE); BARBITURATE SCREEN, URINE NEGATIVE (NEGATIVE); BENZODIAZEPINES SCREEN,URINE NEGATIVE (NEGATIVE); CANNABINOID SCREEN,URINE NEGATIVE (NEGATIVE); COCAINE SCREEN,URINE NEGATIVE (NEGATIVE); METHADONE SCREEN, URINE NEGATIVE (NEGATIVE); OPIATE SCREEN,URINE NEGATIVE (NEGATIVE)
[2022-02-21 20:43] LABS: PHENCYCLIDINE SCREEN,URINE NEGATIVE (NEGATIVE)
[2022-02-21] MEDS: MELATONIN 5 MG TABLET PO SCH (21:00)
[2022-02-21] MEDS ORDERED: OLANZapine 5 MG RAPDIS TABLET PO SCH (21:00)
[2022-02-21 23:15] VITALS: BP 129/89
[2022-02-22 08:04] LABS: CHOL/HDL RATIO 5.3 (4.2-7.3); FREE T4 (FREE THYROXINE) 1.09 ng/dL (0.76-1.46); THYROID STIMULATING HORMONE 1.13 uIU/mL (0.36-3.74)
[2022-02-22 08:50] VITALS: BP 118/74
[2022-02-22] MEDS: MULTIVITAMINS WITH MINERALS, THERAPEUTIC TABLET PO SCH (09:00)
[2022-02-22] MEDS: FOLIC ACID 1 MG TABLET PO SCH (09:00)
[2022-02-22] MEDS ORDERED: PALIPERIDONE PALMITATE 234 MG/1.5 ML SYRINGE IM ONE (09:00)
[2022-02-22] MEDS: DIVALPROEX SODIUM 500 MG ER TABLET PO SCH ×2 (10:28→17:17)
[2022-02-22] MEDS: OMEGA-3/DHA/EPA/FISH OIL 1,000 MG CAPSULE PO SCH (10:29)
[2022-02-22] MEDS: THIAMINE 100 MG TABLET PO SCH ×2 (10:29→17:17)
[2022-02-22] MEDS: NALTREXONE HCL 50 MG TABLET PO SCH (10:29)
[2022-02-22] MEDS ORDERED: LURASIDONE HCL 20 MG TABLET PO PRN (19:45)
[2022-02-22 20:41] VITALS: BP 116/69
[2022-02-22] MEDS: MELATONIN 5 MG TABLET PO SCH (20:56)
[2022-02-22] MEDS ORDERED: INSULIN LISPRO 100 UNITS/ML SQ PRN (23:45)
[2022-02-22] MEDS ORDERED: GLUCAGON,HUMAN RECOMBINANT 1 MG VIAL IM PRN (23:45)
[2022-02-23 06:41] LABS: GLUCOMETER DEV NAME(LOC) BV3N.; GLUCOSE,POINT OF CARE 82 MG/DL (70-110)
[2022-02-23] MEDS: LURASIDONE HCL 40 MG TABLET PO SCH (07:04)
[2022-02-23] MEDS: FOLIC ACID 1 MG TABLET PO SCH (09:23)
[2022-02-23] MEDS: DIVALPROEX SODIUM 500 MG ER TABLET PO SCH ×2 (09:23→17:39)
[2022-02-23] MEDS: MULTIVITAMINS WITH MINERALS, THERAPEUTIC TABLET PO SCH (09:23)
[2022-02-23] MEDS: NALTREXONE HCL 50 MG TABLET PO SCH (09:23)
[2022-02-23] MEDS: THIAMINE 100 MG TABLET PO SCH ×2 (09:23→17:39)
[2022-02-23] MEDS: OMEGA-3/DHA/EPA/FISH OIL 1,000 MG CAPSULE PO SCH (09:23)
[2022-02-23 09:24] VITALS: BP 118/68
[2022-02-23 17:31] LABS: GLUCOMETER DEV NAME(LOC) BV3N.; GLUCOSE,POINT OF CARE 120 MG/DL (70-110)
[2022-02-23] MEDS: MELATONIN 5 MG TABLET PO SCH (20:08)
[2022-02-23 20:19] VITALS: BP 119/63
[2022-02-23] MEDS ORDERED: MELA5TAB40 PO (20:35)
[2022-02-23] MEDS ORDERED: NALT50TA PO (20:35)
[2022-02-23] MEDS ORDERED: LURA40TA2 PO (20:35)
[2022-02-23] MEDS ORDERED: DIVA-80 PO (20:35)
[2022-02-23] MEDS ORDERED: OMEG-135 PO (20:35)
[2022-02-24 06:21] LABS: GLUCOMETER DEV NAME(LOC) BV3N.; GLUCOSE,POINT OF CARE 93 MG/DL (70-110)
[2022-02-24] MEDS: LURASIDONE HCL 40 MG TABLET PO SCH (06:58)
[2022-02-24 08:19] LABS: BASOPHILS % (AUTO) 0.5 % (0.0-2.0); EOSINOPHILS % (AUTO) 0.8 % (1.0-6.0); HEMATOCRIT 39.4 % (41-53); HEMOGLOBIN 12.6 g/dL (13.5-17.5); LYMPHOCYTES # (AUTO) 3.4 K/uL (1.0-4.8); LYMPHOCYTES % (AUTO) 27.5 % (22.0-44.0); MEAN CORPUSCULAR HEMOGLOBIN 26.3 pg (26.0-34.0); MEAN CORPUSCULAR VOLUME 82 fL (80-100); MONOCYTES # (AUTO) 0.7 K/uL (0.1-1.0); MONOCYTES % (AUTO) 5.6 % (2.0-9.0); NEUTROPHILS # (AUTO) 8.2 K/uL (1.8-7.7); NEUTROPHILS % (AUTO) 65.6 % (40.0-70.0); PLATELET COUNT (AUTO) 286 K/uL (150-450); RED CELL DISTRIBUTION WIDTH 15.5 % (11.5-14.5)
[2022-02-24] MEDS: DIVALPROEX SODIUM 500 MG ER TABLET PO SCH (08:26)
[2022-02-24] MEDS: MULTIVITAMINS WITH MINERALS, THERAPEUTIC TABLET PO SCH (08:26)
[2022-02-24] MEDS: NALTREXONE HCL 50 MG TABLET PO SCH (08:26)
[2022-02-24] MEDS: OMEGA-3/DHA/EPA/FISH OIL 1,000 MG CAPSULE PO SCH (08:26)
[2022-02-24] MEDS: FOLIC ACID 1 MG TABLET PO SCH (08:26)
[2022-02-24] MEDS: THIAMINE 100 MG TABLET PO SCH (08:26)
[2022-02-26] MEDS ORDERED: PALIPERIDONE PALMITATE 156 MG/ML SYRINGE IM ONE (09:00)
== END 2022-02-24 13:00 | disposition home or self-care (01) | DRG 750 ==
LOC: EMS 11:17 → B3A 20:00
PROVIDERS: ADMIT Psychiatry & Neurology Psychiatry; ATTEND Psychiatry & Neurology Psychiatry
DX: F20.9 Schizophrenia, unspecified (principal); Z91.199 Patient's noncompliance with other medical treatment and regimen due to unspecified reason; D72.829 Elevated white blood cell count, unspecified; Z20.822 Contact with and (suspected) exposure to COVID-19; E78.5 Hyperlipidemia, unspecified; F17.200 Nicotine dependence, unspecified, uncomplicated; R73.03 Prediabetes; Z55.9 Problems related to education and literacy, unspecified; Z59.9 Problem related to housing and economic circumstances, unspecified; Z63.9 Problem related to primary support group, unspecified; Z65.3 Problems related to other legal circumstances
CPT/HCPCS: 80053; 80061; 80307; 82962; 83036; 84439; 84443; 85025; 86592; G0480; Q9967

== ENCOUNTER 2022-08-03 08:04 | Inpatient (IN) | payer MEDICAID, OTHER ==
[~2022-08-03] VITALS: Ht 165.1 cm; Wt 130.6 kg
[~2022-08-03 08:04] MED LIST changes: +DIVA500T53 PO; -FLUO-177 PO; +LURA40TA2 PO; +MELA5TAB40 PO; +NALT50TA PO; -OLAN10TA74 PO; +OMEG-135 PO
[2022-08-03 09:39] LABS: BASOPHILS % (AUTO) 0.6 % (0.0-2.0); EOSINOPHILS % (AUTO) 0.1 % (1.0-6.0); HEMATOCRIT 41.1 % (41-53); HEMOGLOBIN 13.5 g/dL (13.5-17.5); LYMPHOCYTES # (AUTO) 1.9 K/uL (1.0-4.8); LYMPHOCYTES % (AUTO) 12.9 % (22.0-44.0); MEAN CORPUSCULAR HEMOGLOBIN 25.8 pg (26.0-34.0); MEAN CORPUSCULAR HGB CONC 32.8 G/dL (31.0-37.0); MEAN CORPUSCULAR VOLUME 79 fL (80-100); MONOCYTES # (AUTO) 0.5 K/uL (0.1-1.0); MONOCYTES % (AUTO) 3.6 % (2.0-9.0); NEUTROPHILS # (AUTO) 12.3 K/uL (1.8-7.7); NEUTROPHILS % (AUTO) 82.8 % (40.0-70.0); PLATELET COUNT (AUTO) 298 K/uL (150-450); RED BLOOD CELL COUNT(AUTO) 5.24 MIL/uL (4.50-5.90); RED CELL DISTRIBUTION WIDTH 16.2 % (11.5-14.5)
[2022-08-03 09:48] LABS: COVID AG,FIA SOURCE NASAL SWAB
[2022-08-03] MEDS ORDERED: ZOLPIDEM TARTRATE 10 MG TABLET PO PRN (10:00)
[2022-08-03 10:03] LABS: AMPHET/METH SCREEN,URINE NEGATIVE (NEGATIVE); BARBITURATE SCREEN, URINE NEGATIVE (NEGATIVE); BENZODIAZEPINES SCREEN,URINE NEGATIVE (NEGATIVE); CANNABINOID SCREEN,URINE NEGATIVE (NEGATIVE); COCAINE SCREEN,URINE NEGATIVE (NEGATIVE); METHADONE SCREEN, URINE NEGATIVE (NEGATIVE); OPIATE SCREEN,URINE NEGATIVE (NEGATIVE); PHENCYCLIDINE SCREEN,URINE NEGATIVE (NEGATIVE)
[2022-08-03 10:03] LABS: ANION GAP 14 mmol/L (8-16); CALCIUM, TOTAL 9.2 mg/dL (8.8-10.5); CARBON DIOXIDE 23 mmol/L (22-29); CHLORIDE 100 mmol/L (98-107); CREATININE 0.88 mg/dL (0.60-1.30); GLOMERULAR FILTR. RATE CALC > 60 mL/min (>60); GLUCOSE,RANDOM 168 mg/dL (70-110); POTASSIUM 3.5 mmol/L (3.5-5.1); SODIUM SERUM 137 mmol/L (136-145)
[2022-08-03 10:08] LABS: ALANINE AMINOTRANSFERASE 40 U/L (12-78); ALBUMIN 3.9 g/dL (3.4-5.0); ALKALINE PHOSPHATASE 139 U/L (46-116); ASPARTATE AMINOTRANSFERASE 19 U/L (15-37); BILIRUBIN,TOTAL 0.5 mg/dL (0.1-1.0); TOTAL PROTEIN, SERUM 8.8 g/dL (6.4-8.2)
[2022-08-03] MEDS: HALOPERIDOL 5 MG TABLET PO PRN ×2 (10:12→20:05)
[2022-08-03] MEDS: LORazepam 2 MG TABLET PO PRN ×2 (10:12→20:05)
[2022-08-03 10:25] LABS: APPEARANCE,URINE CLEAR (CLEAR); BILIRUBIN,URINE NEGATIVE (NEGATIVE); GLUCOSE, URINE (UA) NEGATIVE (NEGATIVE); KETONES,URINE NEGATIVE (NEGATIVE); LEUKOCYTE ESTERASE ,URINE NEGATIVE (NEGATIVE); NITRATE,URINE NEGATIVE (NEGATIVE); OCCULT BLOOD,URINE NEGATIVE (NEGATIVE); PROTEIN,URINE 100-200,SEE CONFIRM mg/dL (NEGATIVE); SPECIFIC GRAVITIY, URINE 1.036 (1.003-1.030); UROBILINOGEN,URINE <=1.0 mg/dL (<=1.0)
[2022-08-03 10:27] LABS: SULFOSALICYLIC ACID,URINE 2+ (Negative)
[2022-08-03 10:39] LABS: BACTERIA,URINE None Seen /HPF (None Seen); RBC,URINE 0-2 /HPF (0-2); WBC,URINE 0-2 /HPF (0-5)
[2022-08-03 21:05] VITALS: BP 127/97; PULSE 96; RESP 18; TEMP 97.8; O2SAT 96
[2022-08-04] MEDS ORDERED: CloNIDine HCL 0.1 MG TABLET PO PRN (05:45)
[2022-08-04] MEDS ORDERED: DOCUSATE SODIUM 100 MG CAPSULE PO PRN (05:45)
[2022-08-04] MEDS ORDERED: IBUPROFEN 600 MG TABLET PO PRN (05:45)
[2022-08-04] MEDS ORDERED: LOPERAMIDE HCL 2 MG CAPSULE PO PRN (05:45)
[2022-08-04] MEDS ORDERED: PETROLATUM,WHITE 28 GM JELLY TP PRN (05:45)
[2022-08-04] MEDS ORDERED: MAG HYDROX/AL HYDROX/SIMETH ES 30 ML SUSPENSION UDCUP PO PRN (05:45)
[2022-08-04] MEDS ORDERED: BACITRACIN 28 GM OINTMENT TP PRN (05:45)
[2022-08-04] MEDS ORDERED: ONDANSETRON HCL 4 MG TABLET PO PRN (05:45)
[2022-08-04] MEDS ORDERED: MAGNESIUM HYDROXIDE SUSPENSION 30 ML UDCUP PO PRN (05:45)
[2022-08-04] MEDS ORDERED: OMEPRAZOLE 20 MG CAPSULE PO PRN (05:45)
[2022-08-04] MEDS ORDERED: ACETAMINOPHEN 325 MG TABLET PO PRN (05:45)
[2022-08-04] MEDS ORDERED: ALBUTEROL SULFATE HFA 90 MCG/PUFF 8 GM INHALER IH PRN (05:45)
[2022-08-04 09:39] VITALS: BP 157/60; PULSE 90; RESP 18; TEMP 97.6; O2SAT 96
[2022-08-04] MEDS: OMEGA-3/DHA/EPA/FISH OIL 1,000 MG CAPSULE PO SCH (09:56)
[2022-08-04] MEDS: DIVALPROEX SODIUM 500 MG ER TABLET PO SCH (16:21)
[2022-08-04] MEDS: LURASIDONE HCL 40 MG TABLET PO SCH (20:41)
[2022-08-04] MEDS: HALOPERIDOL 5 MG TABLET PO PRN (20:42)
[2022-08-04] MEDS: LORazepam 2 MG TABLET PO PRN (20:42)
[2022-08-04] MEDS: MELATONIN 5 MG TABLET PO SCH (20:42)
[2022-08-04 21:33] VITALS: BP 132/78; PULSE 96; RESP 20; TEMP 97.2; O2SAT 99
[2022-08-05] MEDS: OMEGA-3/DHA/EPA/FISH OIL 1,000 MG CAPSULE PO SCH (09:21)
[2022-08-05] MEDS: DIVALPROEX SODIUM 500 MG ER TABLET PO SCH ×2 (09:21→17:02)
[2022-08-05 11:33] VITALS: BP 126/75; PULSE 86; RESP 18; TEMP 97.6; O2SAT 97
[2022-08-05] MEDS: LORazepam 2 MG TABLET PO PRN (20:53)
[2022-08-05] MEDS: HALOPERIDOL 5 MG TABLET PO PRN (20:53)
[2022-08-05] MEDS: MELATONIN 5 MG TABLET PO SCH (20:53)
[2022-08-05] MEDS: LURASIDONE HCL 40 MG TABLET PO SCH (20:54)
[2022-08-06 08:00] VITALS: BP 145/72; PULSE 90; RESP 20; TEMP 96.8; O2SAT 97
[2022-08-06] MEDS: OMEGA-3/DHA/EPA/FISH OIL 1,000 MG CAPSULE PO SCH (08:48)
[2022-08-06] MEDS: DIVALPROEX SODIUM 500 MG ER TABLET PO SCH ×3 (08:49→21:40)
[2022-08-06 20:17] VITALS: BP 135/73; PULSE 89; RESP 18; TEMP 97.7
[2022-08-06] MEDS: LURASIDONE HCL 40 MG TABLET PO SCH (21:10)
[2022-08-06] MEDS: HALOPERIDOL 5 MG TABLET PO PRN (21:10)
[2022-08-06] MEDS: MELATONIN 5 MG TABLET PO SCH (21:11)
[2022-08-07] MEDS: OMEGA-3/DHA/EPA/FISH OIL 1,000 MG CAPSULE PO SCH (08:42)
[2022-08-07 09:12] VITALS: BP 137/98; PULSE 72; RESP 18; TEMP 98; O2SAT 99
[2022-08-07] MEDS: DIVALPROEX SODIUM 500 MG ER TABLET PO SCH (17:25)
[2022-08-07 20:34] VITALS: BP 139/88; PULSE 101; RESP 18; TEMP 97.9; O2SAT 98
[2022-08-07] MEDS: LURASIDONE HCL 40 MG TABLET PO SCH (20:38)
[2022-08-07] MEDS: MELATONIN 5 MG TABLET PO SCH (20:39)
[2022-08-08 08:45] VITALS: BP 140/94; PULSE 98; RESP 19; TEMP 97.8; O2SAT 100
[2022-08-08] MEDS: DIVALPROEX SODIUM 500 MG ER TABLET PO SCH ×2 (08:52→17:34)
[2022-08-08] MEDS: OMEGA-3/DHA/EPA/FISH OIL 1,000 MG CAPSULE PO SCH (08:52)
[2022-08-08] MEDS: MELATONIN 5 MG TABLET PO SCH (20:25)
[2022-08-08] MEDS: LURASIDONE HCL 40 MG TABLET PO SCH (20:25)
[2022-08-08 20:31] VITALS: BP 136/88; PULSE 72; RESP 18; TEMP 97.9; O2SAT 99
[2022-08-09 08:35] VITALS: BP 130/72; PULSE 103; RESP 18; TEMP 97; O2SAT 99
[2022-08-09] MEDS: OMEGA-3/DHA/EPA/FISH OIL 1,000 MG CAPSULE PO SCH (08:52)
[2022-08-09] MEDS: DIVALPROEX SODIUM 500 MG ER TABLET PO SCH ×2 (08:53→17:27)
[2022-08-09] MEDS: LURASIDONE HCL 40 MG TABLET PO SCH (21:27)
[2022-08-09] MEDS: HALOPERIDOL 5 MG TABLET PO PRN (21:28)
[2022-08-09] MEDS: MELATONIN 5 MG TABLET PO SCH (21:28)
[2022-08-09] MEDS: LORazepam 2 MG TABLET PO PRN (21:28)
[2022-08-09 22:14] VITALS: BP 149/88; PULSE 100; RESP 19; TEMP 98; O2SAT 100
[2022-08-10] MEDS: OMEGA-3/DHA/EPA/FISH OIL 1,000 MG CAPSULE PO SCH (08:42)
[2022-08-10] MEDS: DIVALPROEX SODIUM 500 MG ER TABLET PO SCH ×2 (08:42→16:14)
[2022-08-10 08:44] VITALS: BP 137/94; PULSE 86; RESP 17; TEMP 97.6; O2SAT 95
[2022-08-10] MEDS ORDERED: LURA40TA2 PO (14:50)
[2022-08-10] MEDS ORDERED: MELA5TAB40 PO (14:50)
[2022-08-10] MEDS ORDERED: DIVA500T53 PO (14:50)
== END 2022-08-10 19:25 | disposition home or self-care (01) | DRG 750 ==
LOC: EMS 08:06 → 3EI 17:52
PROVIDERS: ADMIT Psychiatry & Neurology Psychiatry; ATTEND Psychiatry & Neurology Psychiatry
DX: F25.9 Schizoaffective disorder, unspecified (principal); E11.9 Type 2 diabetes mellitus without complications; I10 Essential (primary) hypertension; F10.11 Alcohol abuse, in remission; G47.00 Insomnia, unspecified; Z20.822 Contact with and (suspected) exposure to COVID-19; K59.00 Constipation, unspecified; F41.9 Anxiety disorder, unspecified; F12.10 Cannabis abuse, uncomplicated; F17.200 Nicotine dependence, unspecified, uncomplicated; Z79.899 Other long term (current) drug therapy
CPT/HCPCS: 80053; 80164; 80307; 81001; 81002; 85025; 99285; G0480; Q9967